=== PATIENT | female | born 1985 | race Caucasian/White ===

== ENCOUNTER 2019-08-10 23:14 | Emergency (ER) | payer OTHER ==
[~2019-08-10] VITALS: Ht 165.1 cm; Wt 77.1 kg
[2019-08-10] MEDS ORDERED: CLARITIN10 M3 PO (23:29)
[2019-08-10] MEDS ORDERED: AUGMENTIN 875-1 EACH PO (23:29)
[2019-08-11 00:33] LABS: ABSOLUTE NEUTROPHILS 8.7 thou/uL (1.4-8.2); BASOPHILS 0.6 % (0.0-2.0); EOSINOPHILS 0.6 % (0.0-3.0); HEMATOCRIT 45.5 % (37.0-47.0); HEMOGLOBIN 15.4 gm/dL (12.0-15.0); LYMPHOCYTES 25.2 % (24.0-44.0); MCH 31.2 pg (26.0-34.0); MCHC 33.8 g/dL (28.0-37.0); MCV 92.3 fL (80.0-100.0); MONOCYTES 6.8 % (1.0-8.0); PLATELET COUNT 245 thou/uL (150-400); POLYS 66.8 % (36.0-66.0); RBC 4.93 mil/uL (4.20-5.00)
[2019-08-11 00:44] LABS: CALCIUM 9.5 mg/dL (8.5-10.1); CREATININE 1.2 mg/dL (0.6-1.0); POTASSIUM 3.5 mmol/L (3.5-5.1)
[2019-08-11] MEDS ORDERED: NORCO 5-325 TA1 EAC1 PO (01:44)
[2019-08-11 02:05] VITALS: BP 136/78
[2019-08-11 02:47] LABS: LARGE PLATELETS RARE
== END 2019-08-11 02:05 | disposition home or self-care (01) ==
LOC: ER 23:14
PROVIDERS: Emergency Medicine
DX: L02.11 Cutaneous abscess of neck (principal); F17.210 Nicotine dependence, cigarettes, uncomplicated